=== PATIENT | female | born 1985 | race Two or more races ===

== ENCOUNTER 2016-08-31 22:00 | Inpatient (IN) | payer BC ==
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
[2016-08-31 23:03] LABS: % IMMATURE GRANULYOCYTES 0.2 % (0.0-1.1); ABSOLUTE IMMATURE GRANULOCYTES 0.01 10^3/uL (0.00-0.10); ADD DIFF? NO; ADD MORPH? NO; ADD SCAN? NO; ATYPICAL LYMPHOCYTE FLAG 20 (0-99); FRAGMENT RBC FLAG 0 (0-99); HEMATOCRIT 37.4 % (38.0-47.0); HEMOGLOBIN 13.2 g/dL (12.6-16.3); LEFT SHIFT FLG 0 (0-99); LIPEMIA HEMOLYSIS FLAG 90 (0-99); MEAN CELL HEMOGLOBIN 30.6 pg (27.9-34.1); MEAN CELL HEMOGLOBIN CONCENTR. 35.3 g/dL (32.4-36.7); MEAN CELL VOLUME 86.6 fL (81.5-99.8); MEAN PLATELET VOLUME 9.2 fL (8.7-11.7); PLATELET CLUMPS FLAG 40 (0-99); PLATELET COUNT 313 10^3/uL (150-400); RED BLOOD CELL COUNT 4.32 10^6/uL (4.18-5.33); RED CELL DISTRIBUTION WIDTH 13.3 % (11.5-15.2)
[2016-08-31 23:16] LABS: ALANINE AMINOTRANSFERASE 37 IU/L (9-52); ALBUMIN 4.1 g/dL (3.5-5.0); ALKALINE PHOSPHATASE 74 IU/L (38-126); ANION GAP 12 mEq/L (8-16); ASPARTATE AMINOTRANSFERASE 24 IU/L (14-46); BILIRUBIN,TOTAL 1.2 mg/dL (0.1-1.4); CALCIUM 9.3 mg/dL (8.5-10.4); CARBON DIOXIDE 21 mEq/l (22-31); CHLORIDE 106 mEq/L (97-110); CREATININE 0.6 mg/dL (0.6-1.0); ETHANOL SERUM < 10 mg/dL (0-10); GLOMERULAR FILTRATION RATE > 60; GLUCOSE 83 mg/dL (70-100); POTASSIUM 3.4 mEq/L (3.5-5.2); SODIUM 139 mEq/L (134-144); TOTAL PROTEIN 7.8 g/dL (6.3-8.2)
[2016-09-01] MEDS ORDERED: LORazepam 1 MG TAB ONE (01:11)
[2016-09-01] MEDS ORDERED: LORazepam 1 MG TAB PO ONE (01:14)
[2016-09-01] MEDS ORDERED: PREGABALIN 50 MG CAP PO ONE (07:47)
[2016-09-01 10:39] VITALS: RESP 12
[2016-09-01] MEDS: Norgestrel-Ethinyl Estradiol [Low-Ogestrel-28 Tablet] 1 EACH PO SCH (11:50)
[2016-09-01] MEDS: CYANO/VITAMIN B12 1000 MCG TAB PO SCH (12:08)
[2016-09-01] MEDS: MULTIVITAMINS 1 EACH TAB PO SCH (12:08)
[2016-09-01] MEDS ORDERED: MAGNESIUM HYDROXIDE 30 ML UDCUP PO PRN (13:10)
[2016-09-01] MEDS ORDERED: ACETAMINOPHEN 325 MG TAB PO PRN (13:10)
[2016-09-01] MEDS ORDERED: MAG HYDROX/AL HYDROX/SIMETH 30 ML UDCUP PO PRN (13:10)
[2016-09-01] MEDS ORDERED: LORazepam 0.5 MG TAB PO PRN (13:10)
[2016-09-01] MEDS ORDERED: NICOTINE POLACRILEX 2 MG GUM B PRN (13:10)
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
[2016-09-01] MEDS: PREGABALIN 50 MG CAP PO SCH ×2 (15:41→21:05)
[2016-09-01] MEDS: MELATONIN 3 MG TAB PO SCH (21:06)
[2016-09-01] MEDS: QUEtiapine FUMARATE 100 MG TAB PO SCH (21:06)
[2016-09-01] MEDS: VILAZODONE HYDROCHLORIDE 20 MG PO SCH (21:07)
[2016-09-02] MEDS: Norgestrel-Ethinyl Estradiol [Low-Ogestrel-28 Tablet] 1 EACH PO SCH (08:03)
[2016-09-02] MEDS: PREGABALIN 50 MG CAP PO SCH ×3 (08:05→20:39)
[2016-09-02] MEDS: CYANO/VITAMIN B12 1000 MCG TAB PO SCH (08:05)
[2016-09-02] MEDS: MULTIVITAMINS 1 EACH TAB PO SCH (08:05)
[2016-09-02] MEDS: QUEtiapine FUMARATE 100 MG TAB PO SCH (20:39)
[2016-09-02] MEDS: VILAZODONE HYDROCHLORIDE 20 MG PO SCH (20:39)
[2016-09-02] MEDS: MELATONIN 3 MG TAB PO SCH (20:39)
[2016-09-03] MEDS: MULTIVITAMINS 1 EACH TAB PO SCH (10:07)
[2016-09-03] MEDS: PREGABALIN 50 MG CAP PO SCH ×3 (10:08→20:39)
[2016-09-03] MEDS: CYANO/VITAMIN B12 1000 MCG TAB PO SCH (10:08)
[2016-09-03] MEDS: Norgestrel-Ethinyl Estradiol [Low-Ogestrel-28 Tablet] 1 EACH PO SCH (10:13)
--- NOTE | 2016-09-03 11:39 | SOAPPROG ---
SOAP Progress Note Assessment/Plan: Assessment: Plan: 09/03/16 11:39 Some improvement. Need to activate her and encourage return to nl roles. CCM. Subjective: LATE ENTRY FOR 09/02/16 Pt seen, discussed with staff. Continues to isolate in her room. Rather regressed, unable to contact her due to shame over recent behaviors. Did talk to her daughters yesterday evening. Unsure is she will return home. I encouraged her to contact her today to discuss this. Mood remains low. C/o low back pain. Tolerating SQL well. Slept better last night. Objective: Vital Signs Temp Pulse Resp BP Pulse Ox 36.6 C 70 12 103/58 L 97 09/03/16 06:00 09/03/16 06:00 09/03/16 06:00 09/03/16 06:00 09/03/16 06:00 - Time Spent With Patient Time Spent With Patient: 25" - Pending Discharge Pending Discharge Within 24 Hours: No ICD10 Worksheet Patient Problems: Problems Problem Status Diagnosed Severe major depression Acute Suicidal ideation Acute
--- NOTE | 2016-09-03 16:21 | SOAPPROG ---
SOAZUL Progress Note Assessment/Plan: Assessment: Plan: 09/03/16 11:39 Some improvement. Need to activate her and encourage return to nl roles. [facility]. 09/03/16 16:23 Remains depressed. Still in a very prostrate stance. Need to engage, activate. Remains actively suicidal with multiple plans. Will continue SP1. Subjective: Pt seen, discussed with staff. Tearful and feeling hopeless and helpless today. Focused on being a burden to her family. She was told that her has been working regular day shifts so he can be home while she is gone and this made her think "they've all just moved on." She demonstrates a lot of catastrophic thinking, believing the family is glad she is gone and doesn't want her back. She acknowledges that she has been inactive in her roles in the family and marriage for some time, but this leads to more shame. She reports some trouble sleeping last night after talking to her children. She states she was thinking of "just telling you everything was fine today and my suicide was 0 /10 so you'd let me go. I would then [place] and either drink enough to not feel pain and freeze to or get a garden hose and do the exhaust thing." Objective: Vital Signs Temp Pulse Resp BP Pulse Ox 36.6 C 70 12 103/58 L 97 09/03/16 06:00 09/03/16 06:00 09/03/16 06:00 09/03/16 06:00 09/03/16 06:00 MSE: Tearful, coop. Affect is o/w blunted, dysphoric. Mood is "really bad." TP linear. TC reveals no psychosis. SI persists with multiple active plans. - Time Spent With Patient Time Spent With Patient: 25" - Pending Discharge Pending Discharge Within 24 Hours: No ICD10 Worksheet Patient Problems: Problems Problem Status Diagnosed Severe major depression Acute Suicidal ideation Acute
[2016-09-03] MEDS: QUEtiapine FUMARATE 100 MG TAB PO SCH (20:36)
[2016-09-03] MEDS: MELATONIN 3 MG TAB PO SCH (20:36)
[2016-09-03] MEDS: VILAZODONE HYDROCHLORIDE 20 MG PO SCH (20:40)
[2016-09-04] MEDS: Norgestrel-Ethinyl Estradiol [Low-Ogestrel-28 Tablet] 1 EACH PO SCH (07:45)
[2016-09-04] MEDS: CYANO/VITAMIN B12 1000 MCG TAB PO SCH (07:46)
[2016-09-04] MEDS: MULTIVITAMINS 1 EACH TAB PO SCH (07:46)
[2016-09-04] MEDS: PREGABALIN 50 MG CAP PO SCH ×3 (07:46→21:12)
--- NOTE | 2016-09-04 17:56 | SOAPPROG ---
SOAZUL Progress Note Assessment/Plan: Assessment: Plan: 09/03/16 11:39 Some improvement. Need to activate her and encourage return to nl roles. [facility]. 09/03/16 16:23 Remains depressed. Still in a very prostrate stance. Need to engage, activate. Remains actively suicidal with multiple plans. Will continue SP1. 09/04/16 17:57 Improved today, less "stuck." Will [facility], work on relationship issues. Subjective: Pt seen, discussed with staff. Reports feeling "a little better." Affect is brighter and she is more interactive, though continues to prefer to stay in her room alone. She is reading the suicide book and taking notes, states it is helpful. She has not yet contacted her , still believing "he doesn't want to talk to me." Discussed need to make a plan to move things along in relationship instead of allowing this level of conflict to continue. Tolerating SQL well. Sleeping better. Anxiety level is better. Pain level remains high. Discussed PT consult. Objective: Vital Signs Temp Pulse Resp BP Pulse Ox 36.7 C 77 12 102/63 96 09/04/16 06:00 09/04/16 06:00 09/04/16 06:00 09/04/16 06:00 09/04/16 06:00 MSE: Calm, coop. Affect is brighter with no tearfulness and spontaneous smiling. Mood is "a little better." TP linear. TC reveals no psychosis. SI persists. - Time Spent With Patient Time Spent With Patient: 25" ICD10 Worksheet Patient Problems: Problems Problem Status Diagnosed Severe major depression Acute Suicidal ideation Acute
[2016-09-04] MEDS: MELATONIN 3 MG TAB PO SCH (21:12)
[2016-09-04] MEDS: VILAZODONE HYDROCHLORIDE 20 MG PO SCH (21:12)
[2016-09-04] MEDS: QUEtiapine FUMARATE 100 MG TAB PO SCH (21:12)
[2016-09-05] MEDS: PREGABALIN 50 MG CAP PO SCH ×3 (07:06→21:27)
[2016-09-05] MEDS: CYANO/VITAMIN B12 1000 MCG TAB PO SCH (09:10)
[2016-09-05] MEDS: Norgestrel-Ethinyl Estradiol [Low-Ogestrel-28 Tablet] 1 EACH PO SCH (09:10)
[2016-09-05] MEDS: MULTIVITAMINS 1 EACH TAB PO SCH (09:10)
[2016-09-05] MEDS: MELATONIN 3 MG TAB PO SCH (21:27)
[2016-09-05] MEDS: QUEtiapine FUMARATE 100 MG TAB PO SCH (21:28)
[2016-09-05] MEDS: VILAZODONE HYDROCHLORIDE 20 MG PO SCH (21:29)
--- NOTE | 2016-09-05 21:44 | SOAPPROG ---
JESS Progress Note Assessment/Plan: Assessment: Plan: 09/03/16 11:39 Some improvement. Need to activate her and encourage return to nl roles. CCM. 09/03/16 16:23 Remains depressed. Still in a very prostrate stance. Need to engage, activate. Remains actively suicidal with multiple plans. Will continue SP1. 09/04/16 17:57 Improved today, less "stuck." Will [facility], work on relationship issues. 09/05/16 21:44 Brightening. [facility]. Subjective: Pt seen, discussed with staff. More upbeat today, engaging. Focused on back pain. PT performed eval. May be able to get heating packs. Discussed need for her to communicate with her prior to d/c in team meeting. Objective: Vital Signs Temp Pulse Resp BP Pulse Ox 36.7 C 74 12 105/53 L 96 09/05/16 06:23 09/05/16 06:23 09/05/16 06:23 09/05/16 06:23 09/05/16 06:23 MSE: Calm, coop. Affect brighter, stable. Mood "OK." TP linear. TC reveals no psychosis. Guarded about SI. States "none." - Time Spent With Patient Time Spent With Patient: 15" - Pending Discharge Pending Discharge Within 24 Hours: No ICD10 Worksheet Patient Problems: Problems Problem Status Diagnosed Severe major depression Acute Suicidal ideation Acute
[2016-09-06] MEDS: CYANO/VITAMIN B12 1000 MCG TAB PO SCH (08:13)
[2016-09-06] MEDS: MULTIVITAMINS 1 EACH TAB PO SCH (08:13)
[2016-09-06] MEDS: PREGABALIN 50 MG CAP PO SCH ×3 (08:13→21:39)
[2016-09-06] MEDS: Norgestrel-Ethinyl Estradiol [Low-Ogestrel-28 Tablet] 1 EACH PO SCH (08:15)
[2016-09-06] MEDS: QUEtiapine FUMARATE 100 MG TAB PO SCH (21:40)
[2016-09-06] MEDS: MELATONIN 3 MG TAB PO SCH (21:40)
[2016-09-06] MEDS: VILAZODONE HYDROCHLORIDE 20 MG PO SCH (21:52)
--- NOTE | 2016-09-07 00:40 | SOAPPROG ---
SOAZUL Progress Note Assessment/Plan: Assessment: Plan: 09/03/16 11:39 Some improvement. Need to activate her and encourage return to nl roles. [facility]. 09/03/16 16:23 Remains depressed. Still in a very prostrate stance. Need to engage, activate. Remains actively suicidal with multiple plans. Will continue SP1. 09/04/16 17:57 Improved today, less "stuck." Will [facility], work on relationship issues. 09/05/16 21:44 Brightening. CCM. 09/07/16 00:41 Much improved. Will [facility], work toward d/c. Subjective: LATE ENTRY FOR 09/06/16 Pt seen, discussed with staff. She was able to call this morning and address recent events. She used a script she wrote herself and reviewed with CC. She reports that did not respond in any way verbally during conversation. She states this was expected and "I can deal with it now." She had a long viist with her sister last evening and is rededicated to roles in family. Feels supported despite 's lack of responsiveness. Objective: Vital Signs Temp Pulse Resp BP Pulse Ox 36.6 C 66 12 107/60 96 09/06/16 06:19 09/06/16 06:19 09/06/16 06:19 09/06/16 06:19 09/06/16 06:19 MSE: Bright affect. Mood is "better." TP linear. TC reveals no psychosis. Reveals no active SI to me. - Time Spent With Patient Time Spent With Patient: 25" - Pending Discharge Pending Discharge Within 24 Hours: Yes Pending Discharge Date: 09/08/16 Pending Discharge Time: 11:00 ICD10 Worksheet Patient Problems: Problems Problem Status Diagnosed Severe major depression Acute Suicidal ideation Acute
[2016-09-07] MEDS: PREGABALIN 50 MG CAP PO SCH (06:01)
[2016-09-07 06:26] VITALS: BP 106/61; PULSE 76; TEMP 98.1; O2SAT 97
[2016-09-07] MEDS: Norgestrel-Ethinyl Estradiol [Low-Ogestrel-28 Tablet] 1 EACH PO SCH (08:44)
[2016-09-07] MEDS: MULTIVITAMINS 1 EACH TAB PO SCH (09:05)
[2016-09-07] MEDS: CYANO/VITAMIN B12 1000 MCG TAB PO SCH (09:05)
== END 2016-09-07 11:15 | disposition home or self-care (01) | DRG 885 ==
LOC: BBEH 09-01 09:23
PROVIDERS: ADMIT Psychiatry & Neurology Psychiatry; ATTEND Psychiatry & Neurology Psychiatry
DX: F33.2 Major depressive disorder, recurrent severe without psychotic features (principal); M79.7 Fibromyalgia; R10.13 Epigastric pain; F12.90 Cannabis use, unspecified, uncomplicated
CPT/HCPCS: 80305; 97110-GP; 97112-GP; 97161-GP; G0480